=== PATIENT | male | born 1955 | race African-American/Black ===

== ENCOUNTER 2023-11-07 10:08 | Emergency (ER) | payer OTHER ==
[~2023-11-07] VITALS: Ht 182.9 cm; Wt 77.5 kg
[~2023-11-07 10:08] MED LIST: CYA100I IM; FOLI1TAB51 PO; Levothyroxine Sodium PO; MULTCAP45 PO
[2023-11-07 10:30] VITALS: PULSE 85; RESP 16; O2SAT 95
[2023-11-07 10:40] VITALS: TEMP 98.9
[2023-11-07] MEDS: SODIUM CHLORIDE 0.9% 1,000 ML IVB ONE (11:55)
[2023-11-07 13:19] LABS: Basophils # (auto) 0 10 ^3/uL (0-0.2); Basophils % (auto) 0.4 % (0.0-2.0); Eosinophils # (auto) 0 10 ^3/uL (0-0.8); Eosinophils % (auto) 0.7 % (0.0-7.0); Hemoglobin 12.1 g/dL (13.5-17.5); Lymphocytes # (auto) 0.5 10 ^3/uL (0.4-5.4); Lymphocytes % (auto) 16.4 % (10.0-50.0); Mean Corpuscular Hemoglobin 29.1 pg (28.0-32.0); Mean Corpuscular Hgb Conc. 32.8 g/dL (32.0-36.0); Mean Corpuscular Volume 88.9 fL (80.0-100.0); Monocytes # (auto) 0.3 10 ^3/uL (0-1.3); Monocytes % (auto) 9.9 % (0.0-12.0); Neutrophils # (auto) 2.1 10 ^3/uL (1.6-8.6); Neutrophils % (auto) 72.6 % (37.0-80.0); Nucleated Red Blood Cells % 0.2 %; Red Blood Cells 4.16 10^6/uL (4.5-5.90); Red Cell Distribution Width 13.6 % (11.8-14.3)
[2023-11-07 13:43] LABS: Alanine Aminotransferase 22 U/L (7-40); Alkaline Phosphatase 64 U/L (46-116); Anion Gap 7 (5-15); Aspartate Aminotransferase 25 U/L (13-40); BUN/Creatinine Ratio 9.5 (10.0-20.0); Blood Urea Nitrogen 10 mg/dL (9-23); Calcium 8.2 mg/dL (8.7-10.4); Carbon Dioxide 23 mmol/L (20-30); Chloride 109 mmol/L (98-107); Glucose 104 mg/dL (74-106); Lipase 86 U/L (12-53); Magnesium 1.6 mg/dL (1.6-2.6); Potassium 3.9 mmol/L (3.5-5.1); Sodium 139 mmol/L (136-145)
[2023-11-07 13:44] LABS: Albumin 3.1 g/dL (3.2-4.8); Bilirubin, Total 0.5 mg/dL (0.2-1.0); Total Protein 5.5 g/dL (5.7-8.2)
[2023-11-07] MEDS: IOHEXOL 350 MG/ML 100ML IJ ONE (15:38)
[2023-11-07 17:00] VITALS: BP 99/55; RESP 18; O2SAT 100
[2023-11-07 17:10] LABS: Urine Bacteria FEW /hpf (None Seen); Urine Blood Negative /uL (Negative); Urine Clarity Clear (Clear); Urine Color Yellow (Yellow); Urine Protein, UAD 1+ (Negative); Urine Specific Gravity 1.012 (1.001-1.035); Urine Urobilinogen Normal (Negative); Urine WBC 1 /hpf (0 - 3)
[2023-11-07 17:24] VITALS: PULSE 64
== END 2023-11-07 17:52 | disposition home or self-care (01) ==
LOC: EDBD 10:08 → ER 10:08
DX: R55 Syncope and collapse (principal); R53.1 Weakness; R79.1 Abnormal coagulation profile; E46 Unspecified protein-calorie malnutrition; R07.89 Other chest pain; E11.9 Type 2 diabetes mellitus without complications; E03.9 Hypothyroidism, unspecified; Z68.23 Body mass index [BMI] 23.0-23.9, adult
CPT/HCPCS: 36415; 70450; 71046; 71275; 80053; 81001; 83690; 83735; 84484; 85025; 85379; 93005; 96360; 99285; J7030; Q9967

== ENCOUNTER 2023-11-25 13:32 | Inpatient (IN) | payer OTHER ==
[~2023-11-25] VITALS: Ht 175.3 cm; Wt 72.6 kg
[2023-11-25 14:53] LABS: Basophils # (auto) 0 10 ^3/uL (0-0.2); Basophils % (auto) 0.4 % (0.0-2.0); Eosinophils # (auto) 0 10 ^3/uL (0-0.8); Eosinophils % (auto) 0.6 % (0.0-7.0); Hematocrit 37.2 % (41.0-53.0); Hemoglobin 12.6 g/dL (13.5-17.5); Lymphocytes # (auto) 0.4 10 ^3/uL (0.4-5.4); Lymphocytes % (auto) 10.1 % (10.0-50.0); Mean Corpuscular Hemoglobin 29.8 pg (28.0-32.0); Mean Corpuscular Volume 87.6 fL (80.0-100.0); Monocytes # (auto) 0.4 10 ^3/uL (0-1.3); Monocytes % (auto) 10.7 % (0.0-12.0); Neutrophils # (auto) 3.2 10 ^3/uL (1.6-8.6); Neutrophils % (auto) 78.2 % (37.0-80.0); Nucleated Red Blood Cells % 0.1 %; Red Blood Cells 4.24 10^6/uL (4.5-5.90); Red Cell Distribution Width 14.2 % (11.8-14.3); White Blood Cell 4.1 10^3/uL (4.4-10.8)
[2023-11-25 14:59] LABS: Chloride 107 mmol/L (98-107); Potassium 3.4 mmol/L (3.5-5.1); Sodium 139 mmol/L (136-145)
[2023-11-25 15:00] LABS: Anion Gap 9 (5-15); Calcium 9.2 mg/dL (8.5-10.1); Carbon Dioxide 23 mmol/L (20-30)
[2023-11-25 15:05] LABS: BUN/Creatinine Ratio 9.9 (10.0-20.0); Blood Urea Nitrogen 9 mg/dL (9-23); Glucose 125 mg/dL (74-106)
[2023-11-25] MEDS: SODIUM CHLORIDE 0.9% 500 ML IV ONE (16:00)
[2023-11-25 16:39] VITALS: PULSE 68; RESP 17; O2SAT 98
[2023-11-25] MEDS: methylPREDNISolone SOD SUCC 125 MG/2 ML VL IV ONE (17:32)
[2023-11-25] MEDS ORDERED: DOCUSATE SOD 100 MG CAP PO PRN (18:45)
[2023-11-25] MEDS ORDERED: ACETAMINOPHEN 325 MG TAB PO PRN (18:45)
[2023-11-25] MEDS ORDERED: DEXTROSE (50%) 50ML SYRG IV PRN (18:45)
[2023-11-25] MEDS ORDERED: NITROGLYCERIN 0.4 MG SL TAB SL PRN (18:45)
[2023-11-25] MEDS ORDERED: HYDROcodone-ACET 5/325MG TAB PO PRN (18:45)
[2023-11-25] MEDS ORDERED: ONDANSETRON HCL 4 MG/2 ML VIAL IV PRN (18:45)
[2023-11-25] MEDS ORDERED: MORPHINE SULFATE INJ 2 MG/ml SYRG IV PRN ×2 (18:45)
[2023-11-25] MEDS ORDERED: PANT40T PO (18:48)
[2023-11-25] MEDS ORDERED: ACYC1TAB2 PO (18:48)
[2023-11-25] MEDS ORDERED: ATOR40TA52 PO (18:48)
[2023-11-25] MEDS ORDERED: LEV25T PO (18:48)
[2023-11-25] MEDS ORDERED: FLUC200T50 PO (18:48)
[2023-11-25] MEDS ORDERED: HYDR200T36 PO (18:48)
[2023-11-25] MEDS ORDERED: BACDST PO (18:53)
[2023-11-25] MEDS: POTASSIUM EFFERVESENT TAB 25 MEQ PO ONE (19:00)
[2023-11-25 20:33] LABS: Erythrocyte Sedimentation Rate 18 mm/hr (0-20)
[2023-11-25 22:58] VITALS: BP 116/69; PULSE 53; RESP 16; TEMP 97.5; O2SAT 97
[2023-11-25 23:05] VITALS: BP 116/69; PULSE 53; RESP 16; TEMP 97.5; O2SAT 97
[2023-11-25 23:07] VITALS: BP 116/69; PULSE 53; RESP 16; TEMP 97.5
[2023-11-25] MEDS: ATORVASTATIN 20 MG TAB PO SCH (23:08)
[2023-11-25] MEDS: ACYCLOVIR 400 MG TAB PO SCH (23:08)
[2023-11-25] MEDS: hydrOXYchloroQUINE SULFATE 200 MG TAB PO SCH (23:09)
[2023-11-25] MEDS: ACCU-CHEK COMFORT CURVE STRIP VI SCH (23:12)
[2023-11-25] MEDS: InsuLIN REG 1unit/0.01ml Soln (100units/ml) SC SCH (23:20)
[2023-11-26 01:00] VITALS: BP 116/69; PULSE 59; RESP 16; TEMP 97.4; O2SAT 97
[2023-11-26 02:10] LABS: Urine Bacteria FEW /hpf (None Seen); Urine Blood Negative /uL (Negative); Urine Clarity Clear (Clear); Urine Color Yellow (Yellow); Urine Mucus FEW (None Seen); Urine Protein, UAD 1+ (Negative); Urine Urobilinogen Normal (Negative); Urine WBC 3 /hpf (0 - 3)
[2023-11-26 05:00] VITALS: BP 115/69; PULSE 49; RESP 16; TEMP 97.6; O2SAT 96
[2023-11-26 07:48] LABS: Alanine Aminotransferase 25 U/L (7-40); Albumin 3.1 g/dL (3.2-4.8); Alkaline Phosphatase 65 U/L (46-116); Anion Gap 10 (5-15); Aspartate Aminotransferase 19 U/L (13-40); BUN/Creatinine Ratio 12.9 (10.0-20.0); Blood Urea Nitrogen 12 mg/dL (9-23); Calcium 8.8 mg/dL (8.7-10.4); Carbon Dioxide 21 mmol/L (20-30); Chloride 107 mmol/L (98-107); Potassium 4.7 mmol/L (3.5-5.1); Sodium 138 mmol/L (136-145)
[2023-11-26 07:49] LABS: Bilirubin, Total 0.5 mg/dL (0.2-1.0); Total Protein 5.8 g/dL (5.7-8.2)
[2023-11-26 07:54] LABS: Glucose 247 mg/dL (74-106)
[2023-11-26 07:59] LABS: Hematocrit 39.1 % (41.0-53.0); Hemoglobin 12.7 g/dL (13.5-17.5); Mean Corpuscular Hgb Conc. 32.4 g/dL (32.0-36.0); Mean Corpuscular Volume 92.5 fL (80.0-100.0); Red Blood Cells 4.23 10^6/uL (4.5-5.90); Red Cell Distribution Width 14.6 % (11.8-14.3); White Blood Cell 2.8 10^3/uL (4.4-10.8)
[2023-11-26 08:02] LABS: Band Neutrophils % (manual) 0; Basophils % (manual) 0 (0.0-2.0); Blast Cells 0; Eosinophils % (manual) 0 (0-7); Metamyelocytes % 0; Myelocytes % 0; Promyelocytes % 0; Reactive Lymphocytes 0
[2023-11-26 08:20] LABS: Lymphocytes % (manual) 20 (10.0-50.0); Monocytes % (manual) 2 (0-12); Platelet Estimate Adequate
[2023-11-26 08:45] VITALS: BP 112/66; PULSE 53; RESP 18; TEMP 97.7; O2SAT 97
[2023-11-26] MEDS: methylPREDNISolone SOD SUCC 40 MG/ML VL IV SCH (10:19)
[2023-11-26] MEDS: PANTOPRAZOLE 40 MG TAB PO SCH (10:20)
[2023-11-26] MEDS: MULTIPLE VITAMIN TAB PO SCH (10:21)
[2023-11-26] MEDS: FLUCONAZOLE 100 MG TAB PO SCH (10:21)
[2023-11-26] MEDS: LEVOTHYROXINE SODIUM 25 MCG TAB PO SCH (10:21)
[2023-11-26] MEDS: SULFAMETHOX W/TRIMETH(800/160MG) DS TAB PO SCH (10:22)
[2023-11-26 12:37] VITALS: BP 119/63; PULSE 65; RESP 17; TEMP 98.1; O2SAT 99
[2023-11-26 16:57] VITALS: BP 117/62; PULSE 58; RESP 18; TEMP 97.4; O2SAT 97
[2023-11-26 21:00] VITALS: BP 98/55; PULSE 53; RESP 20; TEMP 97.7; O2SAT 96
[2023-11-27 01:00] VITALS: BP 108/62; PULSE 50; RESP 20; TEMP 97.8; O2SAT 96
[2023-11-27 05:00] VITALS: BP 99/56; PULSE 50; RESP 15; TEMP 97.7; O2SAT 96
[2023-11-27 09:00] VITALS: BP 144/68; PULSE 88; RESP 19; TEMP 98; O2SAT 95
[2023-11-27 13:00] VITALS: BP 109/63; PULSE 63; RESP 20; TEMP 97.2; O2SAT 98
[2023-11-27 13:15] VITALS: BP 144/68; PULSE 88; RESP 19; TEMP 98; O2SAT 95
[2023-11-27 13:50] VITALS: BP 110/70
== END 2023-11-27 16:50 | disposition home or self-care (01) | DRG 547 ==
LOC: EDBD 13:32 → ER 13:32 → OVERFLOW 18:42 → EAST 22:58
PROVIDERS: ADMIT Nurse Practitioner Family; ATTEND Family Medicine
DX: M32.9 Systemic lupus erythematosus, unspecified (principal); E03.9 Hypothyroidism, unspecified; E11.9 Type 2 diabetes mellitus without complications; I95.9 Hypotension, unspecified; Z66 Do not resuscitate; E78.00 Pure hypercholesterolemia, unspecified; I10 Essential (primary) hypertension; Z95.1 Presence of aortocoronary bypass graft; Z79.4 Long term (current) use of insulin; Z79.899 Other long term (current) drug therapy
CPT/HCPCS: 36415; 70450; 80048; 80053; 81001; 82040; 82962; 84443; 85007; 85025; 85027; 85652; 86141; 86850; 86900; 86901; 93005; 99291; G0378; J1815

== ENCOUNTER 2024-01-02 14:23 | Inpatient (IN) | payer OTHER ==
[~2024-01-02] VITALS: Ht 175.3 cm; Wt 65.5 kg
[~2024-01-02 14:23] MED LIST changes: +ACYC1TAB2 PO; +ATOR40TA52 PO; -CYA100I IM; +FLUC200T50 PO; -FOLI1TAB51 PO; +HYDR200T36 PO; +LEV25T PO; -Levothyroxine Sodium PO; +PANT40T PO
[2024-01-02] MEDS ORDERED: DEXTROSE (50%) 50ML SYRG IV PRN ×3 (14:45→22:45)
[2024-01-02 15:14] LABS: Base Excess -5.2 mmol/L (-2.0-2.0)
[2024-01-02] MEDS: ACCU-CHEK COMFORT CURVE STRIP VI SCH ×2 (15:16→23:52)
[2024-01-02] MEDS: INSULIN LANTUS (GLARGINE) 1 /0.01ml (100units/ml) SC ONE (15:16)
[2024-01-02] MEDS: SODIUM CHLORIDE 0.9% 1,000 ML IV ONE (15:17)
[2024-01-02 15:32] LABS: Basophils # (auto) 0 10 ^3/uL (0-0.2); Basophils % (auto) 0.2 % (0.0-2.0); Eosinophils # (auto) 0 10 ^3/uL (0-0.8); Hematocrit 43.7 % (41.0-53.0); Hemoglobin 14.3 g/dL (13.5-17.5); Lymphocytes % (auto) 7.8 % (10.0-50.0); Mean Corpuscular Hemoglobin 30.4 pg (28.0-32.0); Mean Corpuscular Hgb Conc. 32.8 g/dL (32.0-36.0); Mean Corpuscular Volume 92.5 fL (80.0-100.0); Monocytes # (auto) 1.1 10 ^3/uL (0-1.3); Monocytes % (auto) 8.6 % (0.0-12.0); Neutrophils # (auto) 11.1 10 ^3/uL (1.6-8.6); Neutrophils % (auto) 83.4 % (37.0-80.0); Nucleated Red Blood Cells % 0.1 %; Red Blood Cells 4.72 10^6/uL (4.5-5.90); Red Cell Distribution Width 14.7 % (11.8-14.3); White Blood Cell 13.3 10^3/uL (4.4-10.8)
[2024-01-02] MEDS: INSULIN DRIP 100 UNIT/100ML 100 ML IV SCH ×2 (15:43→18:20)
[2024-01-02 15:44] LABS: Chloride 96 mmol/L (98-107); Sodium 128 mmol/L (136-145)
[2024-01-02 15:45] LABS: Anion Gap 14 (5-15); Carbon Dioxide 18 mmol/L (20-30)
[2024-01-02 15:46] LABS: Calcium 10.9 mg/dL (8.7-10.4)
[2024-01-02 15:50] LABS: BUN/Creatinine Ratio 23.2 (10.0-20.0); Blood Urea Nitrogen 49 mg/dL (9-23)
[2024-01-02 16:03] LABS: Glucose 988 mg/dL (74-106); Lactic Acid w/Reflex 2.3 mmol/L (0.4-2.0); Potassium 6.4 mmol/L (3.5-5.1)
[2024-01-02 16:28] VITALS: RESP 18; O2SAT 96
[2024-01-02] MEDS: SODIUM BICARB 8.4% 50Meq/50ml SYR Vial IV ONE (17:17)
[2024-01-02] MEDS: CALCIUM GLUC 1,000mg/50ml-NS 50 ML IV ONE (18:16)
[2024-01-02 21:38] LABS: Basophils # (auto) 0.1 10 ^3/uL (0-0.2); Basophils % (auto) 0.5 % (0.0-2.0); Eosinophils # (auto) 0 10 ^3/uL (0-0.8); Eosinophils % (auto) 0.1 % (0.0-7.0); Hematocrit 42.7 % (41.0-53.0); Hemoglobin 14.7 g/dL (13.5-17.5); Lymphocytes # (auto) 1.7 10 ^3/uL (0.4-5.4); Lymphocytes % (auto) 13.1 % (10.0-50.0); Mean Corpuscular Hemoglobin 30.1 pg (28.0-32.0); Mean Corpuscular Hgb Conc. 34.5 g/dL (32.0-36.0); Mean Corpuscular Volume 87.3 fL (80.0-100.0); Monocytes % (auto) 7.6 % (0.0-12.0); Neutrophils # (auto) 10.4 10 ^3/uL (1.6-8.6); Neutrophils % (auto) 78.7 % (37.0-80.0); Red Blood Cells 4.89 10^6/uL (4.5-5.90); Red Cell Distribution Width 14.7 % (11.8-14.3); White Blood Cell 13.2 10^3/uL (4.4-10.8)
[2024-01-02] MEDS ORDERED: HYDROcodone-ACET 5/325MG TAB PO PRN (21:45)
[2024-01-02] MEDS ORDERED: DOCUSATE SOD 100 MG CAP PO PRN (21:45)
[2024-01-02] MEDS ORDERED: ACETAMINOPHEN 325 MG TAB PO PRN (21:45)
[2024-01-02] MEDS ORDERED: hydrALAZINE HCL 20 MG/ML VL IV PRN (21:45)
[2024-01-02] MEDS ORDERED: ONDANSETRON HCL 4 MG/2 ML VIAL IV PRN (21:45)
[2024-01-02 21:59] LABS: Alanine Aminotransferase 15 U/L (7-40); Albumin 4.2 g/dL (3.2-4.8); Alkaline Phosphatase 127 U/L (46-116); Anion Gap 10 (5-15); Aspartate Aminotransferase < 8 U/L (13-40); BUN/Creatinine Ratio 31.6 (10.0-20.0); Blood Urea Nitrogen 43 mg/dL (9-23); Carbon Dioxide 23 mmol/L (20-30); Potassium 4.2 mmol/L (3.5-5.1); Sodium 145 mmol/L (136-145)
[2024-01-02] MEDS: SODIUM CHLORIDE 0.9% 1,000 ML IV SCH (21:59)
[2024-01-02 22:00] LABS: Bilirubin, Total 0.5 mg/dL (0.2-1.0)
[2024-01-02] MEDS: cefTRIAXone 1GM/50ML D5W 50 ML IV ONE (22:00)
[2024-01-02 22:13] LABS: Chloride 112 mmol/L (98-107); Glucose 179 mg/dL (74-106)
[2024-01-02] MEDS: InsuLIN REG 1unit/0.01ml Soln (100units/ml) SC SCH (23:53)
[2024-01-03] VITALS (12 sets, daily range): BP systolic 91–152; BP diastolic 60–84; PULSE 74–105; RESP 17–19; TEMP 96.5–98.3; O2SAT 95–100
[2024-01-03] MEDS ORDERED: MORPHINE SULFATE INJ 2 MG/ml SYRG IV PRN
[2024-01-03] MEDS ORDERED: NITROGLYCERIN 0.4 MG SL TAB SL PRN
[2024-01-03] MEDS: LEVOTHYROXINE SODIUM 25 MCG TAB PO SCH (05:22)
[2024-01-03 05:39] LABS: Basophils # (auto) 0 10 ^3/uL (0-0.2); Basophils % (auto) 0.2 % (0.0-2.0); Eosinophils # (auto) 0 10 ^3/uL (0-0.8); Eosinophils % (auto) 0.3 % (0.0-7.0); Hemoglobin 14.4 g/dL (13.5-17.5); Lymphocytes # (auto) 1.3 10 ^3/uL (0.4-5.4); Lymphocytes % (auto) 10.9 % (10.0-50.0); Mean Corpuscular Hemoglobin 30.3 pg (28.0-32.0); Mean Corpuscular Hgb Conc. 34.2 g/dL (32.0-36.0); Mean Corpuscular Volume 88.5 fL (80.0-100.0); Monocytes # (auto) 0.6 10 ^3/uL (0-1.3); Monocytes % (auto) 5.3 % (0.0-12.0); Neutrophils # (auto) 9.6 10 ^3/uL (1.6-8.6); Neutrophils % (auto) 83.3 % (37.0-80.0); Nucleated Red Blood Cells % 0.2 %; Red Blood Cells 4.75 10^6/uL (4.5-5.90); Red Cell Distribution Width 14.8 % (11.8-14.3); White Blood Cell 11.6 10^3/uL (4.4-10.8)
[2024-01-03 05:59] LABS: Alanine Aminotransferase 14 U/L (7-40); Albumin 4.3 g/dL (3.2-4.8); Alkaline Phosphatase 117 U/L (46-116); Anion Gap 9 (5-15); Aspartate Aminotransferase 16 U/L (13-40); BUN/Creatinine Ratio 32.8 (10.0-20.0); Bilirubin, Total 0.6 mg/dL (0.2-1.0); Blood Urea Nitrogen 45 mg/dL (9-23); Calcium 10.9 mg/dL (8.7-10.4); Carbon Dioxide 25 mmol/L (20-30); Chloride 110 mmol/L (98-107); Glucose 298 mg/dL (74-106); Potassium 4.7 mmol/L (3.5-5.1); Sodium 144 mmol/L (136-145); Total Protein 7.1 g/dL (5.7-8.2)
[2024-01-03] MEDS: cefTRIAXone 1GM/50ML D5W 50 ML IV SCH (08:11)
[2024-01-03] MEDS: INSULIN LANTUS (GLARGINE) 1 /0.01ml (100units/ml) SC SCH (10:16)
[2024-01-03] MEDS ORDERED: LORazepam 2MG/ML-1ML VIAL IV PRN (11:00)
[2024-01-03 15:49] LABS: Chloride 107 mmol/L (98-107); Potassium 4.3 mmol/L (3.5-5.1); Sodium 137 mmol/L (136-145)
[2024-01-03 15:50] LABS: Anion Gap 7 (5-15); Carbon Dioxide 23 mmol/L (20-30)
[2024-01-03 15:51] LABS: Calcium 9.8 mg/dL (8.7-10.4)
[2024-01-03 15:56] LABS: BUN/Creatinine Ratio 29.1 (10.0-20.0); Glucose 291 mg/dL (74-106)
[2024-01-03 16:02] LABS: Blood Urea Nitrogen 34 mg/dL (9-23)
[2024-01-03 20:25] LABS: Urine Bacteria None Seen /hpf (None Seen)
[2024-01-03 20:32] LABS: Urine Blood Negative /uL (Negative); Urine Clarity Clear (Clear); Urine Color Light-Yellow (Yellow); Urine Protein, UAD TRACE (Negative); Urine Specific Gravity 1.024 (1.001-1.035); Urine Urobilinogen Normal (Negative); Urine WBC 2 /hpf (0 - 3); Urine pH 5.5 (5.0-9.0)
[2024-01-03 20:44] LABS: Amphetamine Screen, Urine Neg (NEGATIVE); Barbiturate Scree,Urine Neg (NEGATIVE); Benzodiazephine Screen, Urine Neg (NEGATIVE)
[2024-01-03 20:45] LABS: Cannabinoid Screen, Urine Neg (NEGATIVE); Cocaine Screen, Urine Neg (NEGATIVE); Opiate Scree,Urine Neg (NEGATIVE); Phencyclidine Screen, Urine Neg (NEGATIVE)
[2024-01-03 20:46] LABS: Creatinine, Urine 79.55 mg/dL (30.0-125.0)
[2024-01-04] VITALS (9 sets, daily range): BP systolic 94–125; BP diastolic 55–75; PULSE 67–88; RESP 17–18; TEMP 97.5–98.7; O2SAT 95–99
[2024-01-04 06:36] LABS: Anion Gap 6 (5-15); Carbon Dioxide 23 mmol/L (20-30); Chloride 111 mmol/L (98-107); Potassium 3.9 mmol/L (3.5-5.1); Sodium 140 mmol/L (136-145)
[2024-01-04 06:37] LABS: Calcium 8.9 mg/dL (8.7-10.4)
[2024-01-04 06:44] LABS: Phosphorus 2.7 mg/dL (2.4-5.1)
[2024-01-04 06:49] LABS: Glucose 163 mg/dL (74-106)
[2024-01-04 07:01] LABS: Uric Acid 5.1 mg/dL (3.7-9.2)
[2024-01-04 07:02] LABS: BUN/Creatinine Ratio 25.3 (10.0-20.0); Blood Urea Nitrogen 22 mg/dL (9-23)
[2024-01-04] MEDS: InsuLIN REG 1unit/0.01ml Soln (100units/ml) SC SCH (21:36)
[2024-01-05] VITALS (7 sets, daily range): BP systolic 95–116; BP diastolic 58–76; PULSE 73–87; RESP 16; TEMP 97.3–98.3; O2SAT 98–100
[2024-01-05] MEDS: InsuLIN REG 1unit/0.01ml Soln (100units/ml) SC SCH (06:15)
[2024-01-05 06:22] LABS: Alanine Aminotransferase 21 U/L (7-40); Albumin 2.9 g/dL (3.2-4.8); Alkaline Phosphatase 78 U/L (46-116); Anion Gap 6 (5-15); Aspartate Aminotransferase 17 U/L (13-40); BUN/Creatinine Ratio 15.2 (10.0-20.0); Bilirubin, Total 0.4 mg/dL (0.2-1.0); Blood Urea Nitrogen 12 mg/dL (9-23); Calcium 8.7 mg/dL (8.7-10.4); Carbon Dioxide 20 mmol/L (20-30); Chloride 111 mmol/L (98-107); Glucose 192 mg/dL (74-106); Sodium 137 mmol/L (136-145); Total Protein 5.2 g/dL (5.7-8.2)
[2024-01-05 06:29] LABS: Basophils # (auto) 0 10 ^3/uL (0-0.2); Basophils % (auto) 0.6 % (0.0-2.0); Eosinophils # (auto) 0 10 ^3/uL (0-0.8); Eosinophils % (auto) 0.6 % (0.0-7.0); Hemoglobin 12.4 g/dL (13.5-17.5); Lymphocytes # (auto) 1.1 10 ^3/uL (0.4-5.4); Mean Corpuscular Hemoglobin 31.1 pg (28.0-32.0); Mean Corpuscular Hgb Conc. 34.6 g/dL (32.0-36.0); Mean Corpuscular Volume 89.9 fL (80.0-100.0); Monocytes # (auto) 0.3 10 ^3/uL (0-1.3); Monocytes % (auto) 6.3 % (0.0-12.0); Neutrophils # (auto) 3.9 10 ^3/uL (1.6-8.6); Neutrophils % (auto) 71.5 % (37.0-80.0); Nucleated Red Blood Cells % 0.3 %; Red Cell Distribution Width 14.4 % (11.8-14.3); White Blood Cell 5.4 10^3/uL (4.4-10.8)
[2024-01-05] MEDS ORDERED: PIO30T PO (15:34)
== END 2024-01-05 16:24 | disposition home or self-care (01) | DRG 637 ==
LOC: EDBD 14:23 → ER 14:23 → TELE-EAST 23:47 → TELE 23:47 → TELE-EAST 01-03 01:51
PROVIDERS: ADMIT Internal Medicine Geriatric Medicine; ATTEND Internal Medicine Geriatric Medicine
DX: E11.00 Type 2 diabetes mellitus with hyperosmolarity without nonketotic hyperglycemic-hyperosmolar coma (NKHHC) (principal); G93.41 Metabolic encephalopathy; N17.0 Acute kidney failure with tubular necrosis; D84.89 Other immunodeficiencies; E86.0 Dehydration; E87.5 Hyperkalemia; E87.8 Other disorders of electrolyte and fluid balance, not elsewhere classified; I10 Essential (primary) hypertension; I25.10 Atherosclerotic heart disease of native coronary artery without angina pectoris; M32.9 Systemic lupus erythematosus, unspecified; E03.9 Hypothyroidism, unspecified; M19.09 Primary osteoarthritis, other specified site; Z95.1 Presence of aortocoronary bypass graft; Z83.3 Family history of diabetes mellitus; Z79.4 Long term (current) use of insulin; Z79.899 Other long term (current) drug therapy
CPT/HCPCS: 36415; 36600; 71045; 80048; 80053; 80307; 81001; 82010; 82570; 82805; 82962; 83036; 83605; 84100; 84300; 84443; 84550; 85025; 87040; 93005; 96365; 96366; 96367; 96372; 96375; 97163; 99291; G0378; J1815